=== PATIENT | female | born 1930 | race Hispanic/Latino ===

== ENCOUNTER 2016-11-29 14:03 | Emergency (ER) | payer MEDICARE ==
[2016-11-29 14:12] VITALS: BP 152/100; PULSE 67; RESP 19; TEMP 97.9; O2SAT 96
--- NOTE | 2016-11-29 14:52 | ED PDOC ---
HPI: Trauma/Fall - HPI Chief Complaint (Provider): Fall History Per: Patient History/Exam Limitations: no limitations Onset/Duration Of Symptoms: Sudden Onset Injury Occurred (Timing): Just Before Arrival Description Of Injury (Context): fall onto face and left hand Location Of Injury: Left: Hand, Head, Anterior: Head Severity: Mild Pain Scale Rating Of: 3 Associated Symptoms: denies: Dizziness, Dazed, LOC, Seizure, Memory Impairment Additional Complaint(s): 86 year old female with past medical history of HTN, OA brought in by ambulance to ED due to fall. Patient states was in usual state of health when she was walking [place] and stumbled on rocks and fell onto face and left hand. No active bleeding at this time though dry blood is present. Patient denies palpitations, dizziness, headache, chest pain, sob, or change of vision before or after fall. Patient denies any assistive device used. Patient lives alone. Denies numbness/tingling, weakness, or neck pain. PMD: Dr. Lang - Fall Fall:Prior To Injury: Tripped. denies: Passed Out, Almost Passed Out, Slipped, [place] Lightheaded, Vertigo, Lost Balance <Abhishek Dixon - Last Filed: 11/29/16 17:22> <Jessica Toussaint - Last Filed: 11/30/16 07:15> - HPI Time Seen by Provider: 11/29/16 14:20 Chief Complaint (Nursing): Trauma Supervising Attending Note - Supervising Attending Note The Documented history was done by the: Physician Berry Picker Machine Operator, Attending Physician The documented physical exam was done by the: Physician Berry Picker Machine Operator, Attending Physician The documented procedures were done by the: Physician Berry Picker Machine Operator, Attending Physician EM CAVEAT: Acuity of Condition - Attestation: I have personally seen and examined this patient.: Yes I have fully participated in the care of the patient.: Yes I have reviewed all pertinent clinical information, including history, physical exam and plan: Yes <Jessica Toussaint - Last Filed: 11/30/16 07:15> Past Medical History Reviewed: Historical Data, Nursing Documentation, Vital Signs Vital Signs: Last Vital Signs Temp 97.9 F 11/29/16 14:08 Pulse 67 11/29/16 14:08 Resp 19 11/29/16 14:08 BP 152/100 H 11/29/16 14:08 Pulse Ox 96 11/29/16 14:08 - Medical History PMH: HTN - Family History Family History: States: No Known Family Hx <Abhishek Dixon - Last Filed: 11/29/16 17:22> Vital Signs: Last Vital Signs Temp 97.9 F 11/29/16 14:08 Pulse 67 11/29/16 14:08 Resp 19 11/29/16 14:08 BP 152/100 H 11/29/16 14:08 Pulse Ox 96 11/29/16 15:03 <NorbertLawandaconsuelo Garcia - Last Filed: 11/30/16 07:15> - Home Medications Home Medications: Ambulatory Orders Medication Instructions Recorded Ondansetron ODT [Zofran ODT] 4 mg PO Q6 PRN #16 odt 01/21/16 - Allergies Allergies/Adverse Reactions: Allergies Allergy/AdvReac Type Severity Reaction Status Date / Time Penicillins Allergy ANAPHYLAXIS Verified 01/21/16 00:00 Review of Systems ROS Statement: Except As Marked, All Systems Reviewed And Found Negative <Abhishek Dixon - Last Filed: 11/29/16 17:22> Physical Exam - Reviewed Nursing Documentation Reviewed: Yes Vital Signs Reviewed: Yes - Physical Exam Appears: Positive for: Non-toxic, No Acute Distress Head Exam: Positive for: NORMOCEPHALIC (with facial hematomas/contusions/ abrasions. No lacerations present.) Skin: Positive for: Normal Color, Warm, Dry Eye Exam: Positive for: Normal appearance, EOMI, PERRL ENT: Positive for: Normal ENT Inspection, Pharynx Is (normal), TM Is/Are (normal ). Negative for: Sinus Pain/Drainage Neck: Positive for: Normal Cardiovascular/Chest: Positive for: Regular Rate, Rhythm Respiratory: Positive for: Normal Breath Sounds Gastrointestinal/Abdominal: Positive for: Normal Exam, Bowel Sounds (present), Soft. 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 No evidence of syncope or other causes that may have contributed to fall. Plan: * CT HEAD W/O CONTRAST * CT CERVICAL W/O CONTRAST * LEFT HAND X RAY * REEVAL Time: 1700 PROCEDURE: CT scan brain dated 11/29/2016. HISTORY: fall COMPARISON: None available. TECHNIQUE: Axial computed tomography images were obtained through the head/brain without intravenous contrast. Radiation dose: Total exam DLP = 769.14 mGy-cm. This CT exam was performed using one or more of the following dose reduction techniques: Automated exposure control, adjustment of the mA and/or kV according to patient size, and/or use of iterative reconstruction technique. FINDINGS: HEMORRHAGE: No acute parenchymal, subarachnoid nor extra-axial hemorrhage. . BRAIN: Moderate chronic periventricular white matter ischemic changes are also seen extending peripherally into the deep and subcortical white matter both cerebral hemispheres. . Mild vascular calcifications are present. VENTRICLES: Moderate volume loss slightly more central on evidenced by disproportionate enlargement of the ventricles on more so than sulci. CALVARIUM: Left periorbital soft tissue swelling which extends medially over the upper bridge of the nose and glabella region with a larger scalp contusion in the left supraorbital and left as well as mid frontal region. PARANASAL SINUSES: Visualized paranasal sinuses are well-developed and currently well-aerated. No fluid levels seen to suggest acute hemorrhage or sinusitis. No significant mucoperiosteal inflammatory changes. MASTOID AIR CELLS: Unremarkable as visualized. No inflammatory changes. OTHER FINDINGS: Status post bilateral cataract surgery IMPRESSION: No acute intracranial hemorrhage. Moderate chronic white matter ischemic changes Left periorbital soft tissue swelling which extends medially over the upper nasal bones and bridge of the nose patel glabella. More significant left supraorbital and left frontal scalp contusion/ soft tissue swelling. PROCEDURE: CT scan cervical spine dated 11/29/2016 HISTORY: <fall> COMPARISON: None available. TECHNIQUE: Axial computed tomography images were obtained of the cervical spine without the use of intravenous contrast. Coronal and sagittal reformatted images were created and reviewed. Radiation dose: Total exam DLP = 454.28 mGy-cm. This CT exam was performed using one or more of the following dose reduction techniques: Automated exposure control, adjustment of the mA and/or kV according to patient size, and/or use of iterative reconstruction technique. FINDINGS: VERTEBRAE: Current study reveals no acute compression fractures no retropulsed fragments. Vertebral bodies exhibit relatively normal stature. Slight straightening of the midcervical lordosis however vertebral bodies which could be secondary to patient positioning gantry however underlying element of muscle spasm may contribute. There is also a subtle levoscoliosis Vertebral bodies otherwise exhibit relatively normal alignment otherwise exhibit normal alignment DISCS/SPINAL CANAL/NEURAL FORAMINA: Multilevel degenerative spondylosis. At the C2-C3 level, there is mild disc space narrowing. Small central and bilateral disc bulge indents the ventral surface of the thecal sac though does not cause any significant canal compromise nor cord compression. The facet joints are mildly hypertrophic. Exit foramina appear adequate. At the C3-C4 level, there is disc space narrowing, endplate eburnation and small irregular disc ridge complex contiguous with hypertrophic uncovertebral joints right greater than left. The facet joints also hypertrophic. There is some flattening of the ventral surface of the thecal sac reaching and minimally if at all flattening the ventral surface of the narrowed spinal cord. Central canal is minimally. Facets are mildly hypertrophic with bilateral foraminal stenosis. At the C4-C5 level, similar changes are seen. Disc space narrowing with endplate eburnation and small broad-based disc ridge complex contiguous with hypertrophic uncovertebral joints. The facet joints are mildly hypertrophic as well. The changes result in mild canal narrowing and minor flattening of the ventral surface of the cord. The exit foramina are stenotic bilaterally. Surface of the spinal cord Similar changes noted at the C5-C6 level however the overall central canal appears adequate despite some mild flattening of the ventral surface of the thecal sac and possibly some flattening of the cord of. Exit foramina are stenotic bilaterally. Less severe degenerative spondylosis C6-C7 level. PARASPINAL SOFT TISSUES: Prevertebral and paraspinal soft tissues unremarkable. Mild biapical pleural thickening right greater than left with adjacent parenchymal linear scarring/ atelectasis. OTHER FINDINGS: There is mild enlargement right lobe thyroid gland with several areas of low attenuation right lobe more so than left that could represent colloid cysts or nodules. There is also chunk like calcification within the superior aspect right lobe of the thyroid gland measures approximately 6.76 mm. Consider followup thyroid ultrasound. IMPRESSION: No acute fractures. 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 Mildly enlarged right lobe thyroid gland with low-attenuation foci both of right and left lobes. Chunk like calcification right lobe thyroid gland. Recommend followup thyroid ultrasound Biapical pleural thickening right greater than left with parenchymal scarring. Re-evaluated patient. Unchanged, bruising now present. Discussed results with patient in detail. Patient to follow up with PMD in 2-3 days. NSAID or Tylenol therapy q6h PRN pain. Encouraged to ice for the next 24 hrs. Discharge home with ED precautions, patient verbalized understanding. <Abhishek Dixon - Last Filed: 11/29/16 17:22> Disposition <Abhishek Dixon - Last Filed: 11/29/16 17:22> - Patient ED Disposition Is Patient to be Admitted: No Doctor Will See Patient In The: Office Counseled Patient/Family Regarding: Studies Performed, Diagnosis, Need For Followup - Disposition Disposition: Routine/Home Disposition Time: 17:10 <Jessica Toussaint - Last Filed: 11/30/16 07:15> - Clinical Impression Clinical Impression: Traumatic hematoma of face, Head injury - Disposition Referrals: Brock Lang MD [Staff Provider] - Condition: GOOD Additional Instructions: FOLLOW UP WITH PMD DR. LANG IN 2-3 DAYS WITHOUT FAIL. FOLLOW UP THYROID ULTRASOUND WITH PMD. Instructions: Fall Prevention for Older Adults (ED), Head Injury (ED), Facial Contusion (ED) Print Language: NIGERIEN
--- NOTE | 2016-11-29 15:11 | RAD ---
PROCEDURE: Left Hand Radiographs. HISTORY: fall, tenderness of 5th digit COMPARISON: None available. FINDINGS: BONES: Osseous demineralization limits evaluation for acute fracture lines. Degenerative changes. No acute displaced fracture. JOINTS: No dislocation. SOFT TISSUES: Unremarkable. No evidence of radiopaque foreign body. OTHER FINDINGS: None. IMPRESSION: Osseous demineralization. Degenerative changes. No acute displaced fracture, dislocation, or significant joint effusion identified. If symptoms persist, or if there is continued clinical concern, x-ray follow-up in 7-10 days should be considered.
--- NOTE | 2016-11-29 16:20 | CT ---
PROCEDURE: CT scan brain dated 11/29/2016. HISTORY: fall COMPARISON: None available. TECHNIQUE: Axial computed tomography images were obtained through the head/brain without intravenous contrast. Radiation dose: Total exam DLP = 769.14 mGy-cm. This CT exam was performed using one or more of the following dose reduction techniques: Automated exposure control, adjustment of the mA and/or kV according to patient size, and/or use of iterative reconstruction technique. FINDINGS: HEMORRHAGE: No acute parenchymal, subarachnoid nor extra-axial hemorrhage. . BRAIN: Moderate chronic periventricular white matter ischemic changes are also seen extending peripherally into the deep and subcortical white matter both cerebral hemispheres. . Mild vascular calcifications are present. VENTRICLES: Moderate volume loss slightly more central on evidenced by disproportionate enlargement of the ventricles on more so than sulci. CALVARIUM: Left periorbital soft tissue swelling which extends medially over the upper bridge of the nose and glabella region with a larger scalp contusion in the left supraorbital and left as well as mid frontal region. PARANASAL SINUSES: Visualized paranasal sinuses are well-developed and currently well-aerated. No fluid levels seen to suggest acute hemorrhage or sinusitis. No significant mucoperiosteal inflammatory changes. MASTOID AIR CELLS: Unremarkable as visualized. No inflammatory changes. OTHER FINDINGS: Status post bilateral cataract surgery IMPRESSION: No acute intracranial hemorrhage. Moderate chronic white matter ischemic changes Left periorbital soft tissue swelling which extends medially over the upper nasal bones and bridge of the nose patel glabella. More significant left supraorbital and left frontal scalp contusion/ soft tissue swelling.
--- NOTE | 2016-11-29 16:39 | CT ---
PROCEDURE: CT scan cervical spine dated 11/29/2016 HISTORY: <fall> COMPARISON: None available. TECHNIQUE: Axial computed tomography images were obtained of the cervical spine without the use of intravenous contrast. Coronal and sagittal reformatted images were created and reviewed. Radiation dose: Total exam DLP = 454.28 mGy-cm. This CT exam was performed using one or more of the following dose reduction techniques: Automated exposure control, adjustment of the mA and/or kV according to patient size, and/or use of iterative reconstruction technique. FINDINGS: VERTEBRAE: Current study reveals no acute compression fractures no retropulsed fragments. Vertebral bodies exhibit relatively normal stature. Slight straightening of the midcervical lordosis however vertebral bodies which could be secondary to patient positioning gantry however underlying element of muscle spasm may contribute. There is also a subtle levoscoliosis Vertebral bodies otherwise exhibit relatively normal alignment otherwise exhibit normal alignment DISCS/SPINAL CANAL/NEURAL FORAMINA: Multilevel degenerative spondylosis. At the C2-C3 level, there is mild disc space narrowing. Small central and bilateral disc bulge indents the ventral surface of the thecal sac though does not cause any significant canal compromise nor cord compression. The facet joints are mildly hypertrophic. Exit foramina appear adequate. At the C3-C4 level, there is disc space narrowing, endplate eburnation and small irregular disc ridge complex contiguous with hypertrophic uncovertebral joints right greater than left. The facet joints also hypertrophic. There is some flattening of the ventral surface of the thecal sac reaching and minimally if at all flattening the ventral surface of the narrowed spinal cord. Central canal is minimally. Facets are mildly hypertrophic with bilateral foraminal stenosis. At the C4-C5 level, similar changes are seen. Disc space narrowing with endplate eburnation and small broad-based disc ridge complex contiguous with hypertrophic uncovertebral joints. The facet joints are mildly hypertrophic as well. The changes result in mild canal narrowing and minor flattening of the ventral surface of the cord. The exit foramina are stenotic bilaterally. Surface of the spinal cord Similar changes noted at the C5-C6 level however the overall central canal appears adequate despite some mild flattening of the ventral surface of the thecal sac and possibly some flattening of the cord of. Exit foramina are stenotic bilaterally. Less severe degenerative spondylosis C6-C7 level. PARASPINAL SOFT TISSUES: Prevertebral and paraspinal soft tissues unremarkable. Mild biapical pleural thickening right greater than left with adjacent parenchymal linear scarring/atelectasis. OTHER FINDINGS: There is mild enlargement right lobe thyroid gland with several areas of low attenuation right lobe more so than left that could represent colloid cysts or nodules. There is also chunk like calcification within the superior aspect right lobe of the thyroid gland measures approximately 6.76 mm. Consider followup thyroid ultrasound. IMPRESSION: No acute fractures. 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 Mildly enlarged right lobe thyroid gland with low-attenuation foci both of right and left lobes. Chunk like calcification right lobe thyroid gland. Recommend followup thyroid ultrasound Biapical pleural thickening right greater than left with parenchymal scarring.
== END 2016-11-29 18:23 | disposition home or self-care (01) ==
LOC: H.ER 14:03
DX: S00.83XA Contusion of other part of head, initial encounter (principal); S09.93XA Unspecified injury of face, initial encounter; S00.03XA Contusion of scalp, initial encounter; S69.92XA Unspecified injury of left wrist, hand and finger(s), initial encounter; W19.XXXA Unspecified fall, initial encounter; Y92.410 Unspecified street and highway as the place of occurrence of the external cause; I10 Essential (primary) hypertension; Z88.0 Allergy status to penicillin